=== PATIENT | female | born 1990 | race Caucasian/White ===

== ENCOUNTER → 2020-06-18 | Outpatient (CLI) | payer BC ==
[~2020-06-18] MED LIST: NAPR-243 PO; TRM50T PO
== END ==
LOC: LAB FS 12:33
PROVIDERS: ATTEND Family Medicine
DX: R79.89 Other specified abnormal findings of blood chemistry (principal)
CPT/HCPCS: 36415; 84146

== ENCOUNTER → 2020-06-25 | Outpatient (CLI) | payer BC | LOC: LAB FS 10:27 | PROVIDERS: ATTEND Family Medicine | DX: R79.89 Other specified abnormal findings of blood chemistry (principal) | CPT/HCPCS: 36415; 84146 ==

== ENCOUNTER → 2020-08-09 | Outpatient (CLI) | payer BC ==
[~2020-08-09] MED LIST changes: +IOHEXOL 300 MG/ML 50 ML (OMNIPAQUE 300) VIAL IV ONE
--- NOTE | 2020-08-09 14:22 | Diagnostic Imaging Report ---
EXAM: Hysterosalpingogram INDICATION: Female infertility This study was performed by Dr. Patti Rojo. 10 seconds of fluoroscopy time was utilized. The preliminary film was unremarkable. Following aseptic preparation of the cervix. A small catheter was inserted into the cervical os and 3 mL of Omnipaque 300 contrast was infused. There was extension of the contrast into the fallopian tubes and there was spill from each fallopian tube. The endometrial cavity, where visualized, is unremarkable. A portion of the endometrial cavity however was obscured by the bulb of the catheter. IMPRESSION: The fallopian tubes are patent bilaterally. Dictated by: Dictated on workstation # [id number]
== END ==
LOC: RAD 12:45
PROVIDERS: ATTEND Obstetrics & Gynecology
DX: N97.9 Female infertility, unspecified (principal)
CPT/HCPCS: 58340; 74740